=== PATIENT | female | born 1950 | race Caucasian/White ===

== ENCOUNTER 2021-07-13 16:23 | Inpatient (IN) | payer MEDICARE, OTHER ==
[~2021-07-13] VITALS: Ht 165.1 cm; Wt 99.8 kg
[2021-07-13] MEDS ORDERED: DEXAMETHASONE SOD PHOSPHATE 4 MG INJ IV ONE (16:45)
[2021-07-13] MEDS ORDERED: IV NORMAL SALINE 1000 ML BAG IV ONE (16:45)
[2021-07-13] MEDS ORDERED: ASPI81TA31 PO (16:55)
[2021-07-13] MEDS ORDERED: LEVO50TA8 PO (16:55)
[2021-07-13] MEDS ORDERED: FURO-152 PO (16:55)
[2021-07-13] MEDS ORDERED: METO-356 PO (16:55)
[2021-07-13] MEDS ORDERED: SEMA1PEN SQ (16:55)
[2021-07-13] MEDS ORDERED: GABA-532 PO (16:55)
[2021-07-13] MEDS ORDERED: VOLTAREN 1% GEL TOP (16:55)
[2021-07-13] MEDS ORDERED: VALS1TAB4 PO (16:55)
[2021-07-13] MEDS ORDERED: CALC500T52 PO (16:55)
[2021-07-13] MEDS ORDERED: ERGO500040 PO (16:55)
[2021-07-13] MEDS ORDERED: FAMO20TA8 PO (16:55)
[2021-07-13] MEDS ORDERED: DICY10CA13 PO (16:55)
[2021-07-13] MEDS ORDERED: SIMV10TA98 PO (16:55)
[2021-07-13] MEDS ORDERED: METF-440 PO (16:55)
[2021-07-13] MEDS ORDERED: TOLT4CAP PO (16:55)
[2021-07-13] MEDS ORDERED: INSU3INS6 SQ (16:55)
[2021-07-13] MEDS ORDERED: CHOL500050 PO (16:55)
[2021-07-13] MEDS ORDERED: OMEP1CAP4 PO (16:55)
[2021-07-13] MEDS ORDERED: IBUP-1953 PO (16:55)
[2021-07-13] MEDS ORDERED: GLIM2TAB31 PO (16:55)
[2021-07-13 17:45] LABS: HEMATOCRIT 41.7 % (31.2-41.9); MEAN CORPUSCULAR HEMOGLOBIN 29.5 uug (24.7-32.8); MEAN CORPUSCULAR VOLUME 85.6 fL (75.5-95.3); PLATELET COUNT (AUTO) 375 K/uL (179-408)
[2021-07-13 17:55] LABS: CREATININE 1.1 mg/dL (0.6-1.3); POTASSIUM 3.9 mmol/L (3.5-5.1)
[2021-07-13] MEDS ORDERED: DEXAMETHASONE SOD PHOSPHATE 4 MG INJ ONE (17:56)
[2021-07-13 18:07] LABS: BILIRUBIN,TOTAL 0.7 mg/dL (0.2-1.0); TOTAL PROTEIN, SERUM 7.9 g/dL (6.4-8.2)
--- NOTE | 2021-07-13 18:27 | NUR ---
Gave pt dinner tray. Apparently not able to give urine sample yet.
[2021-07-13] MEDS ORDERED: ONDANSETRON 4 MG/2 ML VIAL IV PRN (19:30)
[2021-07-13] MEDS ORDERED: ACETAMINOPHEN 325 MG TABLET PO PRN (19:30)
[2021-07-13] MEDS ORDERED: Z GUARD REMEDY PASTE 57 GM TUBE TOP PRN (19:30)
[2021-07-13] MEDS ORDERED: MAGNESIUM HYDROXIDE 30 ML LIQUID UDC PO PRN (19:30)
--- NOTE | 2021-07-13 21:22 | NUR ---
PT NOTED TO BE AWAKE USING HER PHONE. DENIES ANY SOB OR LABORED BREATHIING, AFEBRILE. DENIES PAIN/DISCOMFORT. VITALS STABLE.
[2021-07-13 21:35] LABS: *BILIRUBIN,URIN NEGATIVE (NEGATIVE); *BLOOD, URINE NEGATIVE (NEGATIVE); *CLARITY,URINE CLEAR (CLEAR); *COLOR,URINE AMBER (YELLOW); *KETONES,URINE 1+ (NEGATIVE); LEUKOCYTE ESTERASE ,URINE NEGATIVE (NEGATIVE); NITRITE, URINE NEGATIVE (NEGATIVE); UGLUCOSE NEGATIVE (NEGATIVE)
[2021-07-13 21:48] LABS: BACTERIA,URINE FEW /HPF (NONE SEEN); RBC,URINE 0-3 /HPF (0-3); SQUAMOUS EPITHELIAL CELL,UR MODERATE /HPF (NONE SEEN); WBC,URINE 0-3 /HPF (0-3)
--- NOTE | 2021-07-13 23:10 | NUR ---
GAVE REPORT TO DEMARIO SONG. TELE 3RD FLOOR.
--- NOTE | 2021-07-13 23:25 | NUR ---
Pt. admitted to tele room 322 , under care of Dr. Hope Dx: COVID PNA Belongs List completed PT ADMITTED IN STABLE CONDITION, NO SOB OR LABORED BREATHING, AFEBRILE. DENIES N/V/D. DENIED PAIN/DISCOMORT.
[2021-07-13] MEDS: ENOXAPARIN SODIUM 40 MG/0.4 ML DISP.SYRIN SQ SCH (23:49)
[2021-07-14 00:07] VITALS: BP 107/70
[2021-07-14 04:41] VITALS: BP 108/59
[2021-07-14] MEDS: PANTOPRAZOLE SODIUM 40 MG TABLET.DR PO SCH (06:29)
--- NOTE | 2021-07-14 06:30 | NUR ---
Admitted to room 322; placed on tele and oxygen with long tubing; able to make needs known; ambulates to toilet; placed on continuous pulse ox and sat 96% on 3L; BS this AM 180; will endorse. Home meds still needs reconciliation.
[2021-07-14 07:49] LABS: HEMATOCRIT 38.9 % (31.2-41.9); MEAN CORPUSCULAR VOLUME 85.9 fL (75.5-95.3); PLATELET COUNT (AUTO) 351 K/uL (179-408)
[2021-07-14 07:58] LABS: CREATININE 0.7 mg/dL (0.6-1.3); MAGNESIUM 2.2 mg/dL (1.8-2.4); PHOSPHOROUS 4.4 mg/dL (2.5-4.9); POTASSIUM 4.1 mmol/L (3.5-5.1)
[2021-07-14] MEDS: DEXAMETHASONE SOD PHOSPHATE 4 MG INJ IV SCH (08:51)
[2021-07-14] MEDS ORDERED: IBUP-1955 PO (11:22)
[2021-07-14 11:26] VITALS: BP 124/75
[2021-07-14] MEDS ORDERED: METF-494 PO (11:28)
[2021-07-14 15:41] VITALS: BP 121/61
--- NOTE | 2021-07-14 18:19 | NUR ---
Patient resting in bed. AOx4. On 3L O2 via NC. No signs of acute distress. Patient denies pain/ discomfort. Patient denies SOB/ at this time. 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 IV access patent and intact. Compliant with medications and care. Call light within reach. Will endorse to incoming shift for continuity of care.
[2021-07-14 20:13] VITALS: BP 126/77
[2021-07-14] MEDS: ENOXAPARIN SODIUM 40 MG/0.4 ML DISP.SYRIN SQ SCH (21:25)
[2021-07-14] MEDS ORDERED: DEXTROSE 50% 50 ML DISP.SYRIN IV PRN (22:30)
[2021-07-14] MEDS: INSULIN REGULAR, HUMAN 300 UNIT/3 ML VIAL SQ PRN (22:32)
[2021-07-14] MEDS: BLOOD SUGAR DIAGNOSTIC 1 EACH STRIP VI SCH (22:33)
[2021-07-15 00:27] VITALS: BP 113/52
[2021-07-15 04:40] VITALS: BP 119/64
[2021-07-15] MEDS: PANTOPRAZOLE SODIUM 40 MG TABLET.DR PO SCH (06:04)
[2021-07-15] MEDS: LEVOTHYROXINE SODIUM 50 MCG TABLET PO SCH (06:04)
[2021-07-15] MEDS: BLOOD SUGAR DIAGNOSTIC 1 EACH STRIP VI SCH ×4 (06:13→20:47)
[2021-07-15 07:09] LABS: MEAN CORPUSCULAR HEMOGLOBIN 28.9 uug (24.7-32.8); MEAN CORPUSCULAR VOLUME 86.3 fL (75.5-95.3); PLATELET COUNT (AUTO) 349 K/uL (179-408)
[2021-07-15 07:20] LABS: CREATININE 0.8 mg/dL (0.6-1.3); MAGNESIUM 2.2 mg/dL (1.8-2.4); PHOSPHOROUS 3.7 mg/dL (2.5-4.9); POTASSIUM 4.1 mmol/L (3.5-5.1)
[2021-07-15] MEDS: DEXAMETHASONE SOD PHOSPHATE 4 MG INJ IV SCH (08:23)
[2021-07-15] MEDS: DICYCLOMINE HCL 10 MG CAPSULE PO SCH ×2 (08:24→16:46)
[2021-07-15] MEDS: METOPROLOL SUCCINATE XL 25 MG TAB.SR.24H PO SCH (08:24)
[2021-07-15] MEDS: ASPIRIN 81 MG TAB.CHEW PO SCH (08:24)
[2021-07-15] MEDS: INSULIN REGULAR, HUMAN 300 UNIT/3 ML VIAL SQ PRN ×4 (08:26→21:06)
[2021-07-15 16:00] VITALS: BP 126/70
[2021-07-15] MEDS: SIMVASTATIN 10 MG TABLET PO SCH (17:30)
[2021-07-15 20:00] VITALS: BP 104/54
[2021-07-15] MEDS: ENOXAPARIN SODIUM 40 MG/0.4 ML DISP.SYRIN SQ SCH (20:35)
[2021-07-16] VITALS: BP 135/76
[2021-07-16 04:00] VITALS: BP 135/75
[2021-07-16] MEDS: LEVOTHYROXINE SODIUM 50 MCG TABLET PO SCH (06:23)
[2021-07-16] MEDS: PANTOPRAZOLE SODIUM 40 MG TABLET.DR PO SCH (06:23)
--- NOTE | 2021-07-16 06:27 | NUR ---
Patient slept well. No acute distress noted. NSr on tele.Denies pain or discomfort at this time. O2 at 3 LPM via nC saturating at 95 %.Patient ambulates to bathroom . Voided well.Compliant with medication.Continue on isolation.Will endorse to oncoming on shift.
[2021-07-16] MEDS: BLOOD SUGAR DIAGNOSTIC 1 EACH STRIP VI SCH ×4 (06:49→20:56)
[2021-07-16 06:56] LABS: HEMATOCRIT 39.2 % (31.2-41.9); MEAN CORPUSCULAR HEMOGLOBIN 29.5 uug (24.7-32.8); MEAN CORPUSCULAR VOLUME 86.5 fL (75.5-95.3); PLATELET COUNT (AUTO) 343 K/uL (179-408)
[2021-07-16 07:23] LABS: CREATININE 0.8 mg/dL (0.6-1.3); MAGNESIUM 2.2 mg/dL (1.8-2.4); PHOSPHOROUS 3.7 mg/dL (2.5-4.9); POTASSIUM 4.3 mmol/L (3.5-5.1)
--- NOTE | 2021-07-16 08:00 | NUR ---
RECEIVED PATIENT IN ROOM AWAKE ALERT AND ORIENTED REMAIN ON COVID ISOLATION AND PRECAUTION REMAIN ON O2 AT 4L/M WITH O2 SAT AT 91-92 PERCENT AT THIS TIME CALL LIGHTS AND PERSONAL BELONGINGS ARE WITHIN EASY REACH AT THIS TIME WILL CONTINUE TO OBSERVE.
[2021-07-16] MEDS: DICYCLOMINE HCL 10 MG CAPSULE PO SCH ×2 (08:23→17:28)
[2021-07-16] MEDS: ASPIRIN 81 MG TAB.CHEW PO SCH (08:23)
[2021-07-16] MEDS: DEXAMETHASONE SOD PHOSPHATE 4 MG INJ IV SCH (08:23)
[2021-07-16] MEDS: METOPROLOL SUCCINATE XL 25 MG TAB.SR.24H PO SCH (08:24)
[2021-07-16] MEDS: INSULIN REGULAR, HUMAN 300 UNIT/3 ML VIAL SQ PRN ×4 (08:26→20:58)
[2021-07-16 12:00] VITALS: BP 115/73
--- NOTE | 2021-07-16 12:30 | NUR ---
DR STRAUSS HERE SEEN PATIENT AND SPOKE WIT PATIENTS SISTER RE PLAN OF CARE WITH NEW ORDERS AND NOTED
[2021-07-16 16:08] VITALS: BP 122/75
[2021-07-16] MEDS: SIMVASTATIN 10 MG TABLET PO SCH (17:35)
--- NOTE | 2021-07-16 18:04 | NUR ---
CURRENTLY ON O2 AT 3L.M WITH SATS FLUCTUATING BETWEEN 914-94 PERCENT PATIENT DENIES SHORTNESS OF BREATH NO S/S OF HYPO/HYPERGLYCEMIC REACTIONS AT THIS TIME WILL CONTINUE TO OBSERVE.
--- NOTE | 2021-07-16 19:30 | NUR ---
Patient is resting in bed. She is Farsi speaking. Speaks very little Faroese, able to make simple needs known. Continues on 3L/min via NC. 02 sats are 89-90%. Encouraged to deep breath, O2 sats increase to 92%. Continues O2 sats and Telemetry, NSR. Needs assessed and attended. Safety measures initiated. Call light within reach.
[2021-07-16 20:15] VITALS: BP 116/79
[2021-07-16] MEDS: ENOXAPARIN SODIUM 40 MG/0.4 ML DISP.SYRIN SQ SCH (20:38)
[2021-07-17 00:12] VITALS: BP 128/78
[2021-07-17 04:15] VITALS: BP 149/86
[2021-07-17] MEDS: LEVOTHYROXINE SODIUM 50 MCG TABLET PO SCH (06:17)
[2021-07-17] MEDS: PANTOPRAZOLE SODIUM 40 MG TABLET.DR PO SCH (06:17)
[2021-07-17] MEDS: BLOOD SUGAR DIAGNOSTIC 1 EACH STRIP VI SCH (06:30)
--- NOTE | 2021-07-17 06:49 | NUR ---
Slept well this shift. No significant events. 02 at 3L/min, no SOB or coughing noted, 02 sats fluctuate 90-96%. Patient NSR on telemetry. States she will speak to MD this am and request to be DC. Gait is steady, ambulates independently to bathroom. Call light within reach.
[2021-07-17 07:44] LABS: HEMATOCRIT 36.5 % (31.2-41.9); MEAN CORPUSCULAR HEMOGLOBIN 32.4 uug (24.7-32.8); PLATELET COUNT (AUTO) 339 K/uL (179-408)
[2021-07-17 08:00] VITALS: BP 103/53
--- NOTE | 2021-07-17 08:00 | NUR ---
Received pt. She is a/o x 4, Russian speaking. pt is presenting with normal sinus rhythm on telemetry saturating 94% on 3.5 L nasal cannula. Pt states that she needs to go home today because her is sick at home alone with no one to care or cook for him. I explained risks of leaving home without being cleared by MD and she verbalized understanding but insisted that she needs to go home today. Notified pt that PCR is still pending and we do not know if she is positive or negative for Covid and she may transmit to others around her. She stated that her also has Covid and it does not change the fact that she needs to leave. Notified MD that pt desires to go home, if not cleared, will leave AMA.
[2021-07-17 08:09] LABS: CREATININE 0.8 mg/dL (0.6-1.3); MAGNESIUM 2.1 mg/dL (1.8-2.4); PHOSPHOROUS 4.1 mg/dL (2.5-4.9); POTASSIUM 4.1 mmol/L (3.5-5.1)
[2021-07-17 08:30] VITALS: BP 103/53
[2021-07-17] MEDS: DICYCLOMINE HCL 10 MG CAPSULE PO SCH (08:37)
[2021-07-17] MEDS: DEXAMETHASONE SOD PHOSPHATE 4 MG INJ IV SCH (08:37)
[2021-07-17] MEDS: ASPIRIN 81 MG TAB.CHEW PO SCH (08:37)
[2021-07-17] MEDS: INSULIN REGULAR, HUMAN 300 UNIT/3 ML VIAL SQ PRN (08:39)
[2021-07-17] MEDS: METOPROLOL SUCCINATE XL 25 MG TAB.SR.24H PO SCH (09:00)
[2021-07-17 11:15] VITALS: BP 139/87
--- NOTE | 2021-07-17 11:15 | NUR ---
Pt left AMA to private home, lives with . Education on Covid-19 quarantine and diagnosis provided, AMA form signed by pt. pt vitals prior to leaving : BP 139/87, HR 84, O2 saturation 92-93% on room air. Pt left via UBER provided by her friend Stephen. Pt's number is . PCR still pending, pt aware. Personal belongings at hand, IV/ ID band removed. notified of pt leaving.
== END 2021-07-17 11:15 | disposition left against medical advice (07) | DRG 177 ==
LOC: ER 16:25 → TELE3 23:13
PROVIDERS: ADMIT Student in an Organized Health Care Education/Training Program; ATTEND Student in an Organized Health Care Education/Training Program
DX: U07.1 COVID-19 (principal); J12.82 Pneumonia due to coronavirus disease 2019; J96.01 Acute respiratory failure with hypoxia; E46 Unspecified protein-calorie malnutrition; E03.9 Hypothyroidism, unspecified; E11.9 Type 2 diabetes mellitus without complications; E66.9 Obesity, unspecified; I10 Essential (primary) hypertension; Z79.4 Long term (current) use of insulin; Z87.891 Personal history of nicotine dependence; E78.5 Hyperlipidemia, unspecified; Z68.36 Body mass index [BMI] 36.0-36.9, adult
CPT/HCPCS: 36415; 70030-TC; 71045; 83605; 83615; 83735; 84100; 85025; 85730; 86140; 87040; 87400; 93005; A4663; G0378; J1100; J1650; J1815; J7030; U0003